=== PATIENT | male | born 1935 | race Caucasian/White ===

== ENCOUNTER 2017-08-30 17:22 | Emergency (ER) | payer MEDICARE, BC | END 2017-08-30 18:00 | disposition home or self-care (01) | LOC: SCSER 17:22 | DX: S39.012A Strain of muscle, fascia and tendon of lower back, initial encounter (principal); E11.9 Type 2 diabetes mellitus without complications; K21.9 Gastro-esophageal reflux disease without esophagitis; I10 Essential (primary) hypertension; Z87.891 Personal history of nicotine dependence; Z87.442 Personal history of urinary calculi; X50.1XXA Overexertion from prolonged static or awkward postures, initial encounter; Y92.89 Other specified places as the place of occurrence of the external cause | CPT/HCPCS: 99282 ==

== ENCOUNTER 2017-12-21 18:08 | Inpatient (IN) | payer BC, MEDICARE ==
[2017-12-21 19:14] LABS: #Eosinphils 0.1 thou/uL (0.0-0.7); #Lymphocytes 1.6 thou/uL (1.20-3.40); #Monocytes 0.9 thou/uL (0.11-0.59); #Neutrophils 7.7 thou/uL (1.40-6.50); %Basophils 0.4 % (0.0-1.0); %Eosinophils 0.6 % (0.0-10.0); %Lymphocytes 15.2 % (21.0-51.0); %Monocytes 8.4 % (0.0-10.0); %Neutrophils 75.4 % (42.0-75.0); Hemoglobin 13.3 g/dL (14.0-18.0); Mean Corpuscular HGB CONC 33.8 g/dL (32.0-36.0); Mean Corpuscular Hemoglobin 30.7 pg (27.0-31.0); Mean Corpuscular Volume 90.8 fL (78.0-98.0); Mean Platelet Volume 7.1 fL (7.4-10.4); Platelet Count 240 thou/uL (130-400); RBC Distribution Width 11.5 % (11.5-14.5); Red Blood Cell (RBC) Count 4.34 mill/uL (4.70-6.10); White Blood Cell (WBC) Count 10.3 thou/uL (4.8-10.8)
--- NOTE | 2017-12-21 19:25 | CT ---
CT OF BRAIN PERFORMED WITHOUT CONTRAST ENHANCEMENT: History: Altered mental status. FINDINGS: The ventricular and cisternal system shows some mild generalized atrophy. There are no signs of intra cerebral hemorrhage or extraaxial fluid collections. The mastoid air cells and visualized sinuses are clear. IMPRESSION: No acute intracranial abnormalities. POS: [facility]
[2017-12-21 19:31] LABS: ALT (SGPT) 12 U/L (8-55); AST (SGOT) 13 U/L (5-34); Albumin 3.8 g/dL (3.4-4.8); Alkaline Phosphatase 52 U/L (40-150); Anion Gap 19 mmol/L (10-20); BUN (Urea Nitrogen) 27 mg/dL (8.4-25.7); Bilirubin, Total 0.5 mg/dL (0.2-1.2); Calc. Creatinine Clearance 0 mL/min (70-130); Calcium 9.1 mg/dL (7.8-10.44); Carbon Dioxide 18 mmol/L (23-31); Chloride 108 mmol/L (98-107); Estimated GFR-MDRD 57; Globulin 2.7 g/dL (2.4-3.5); Glucose 172 mg/dL (83-110); Potassium 4.4 mmol/L (3.5-5.1); Protein, Total 6.5 g/dL (5.8-8.1); Sodium 141 mmol/L (136-145)
[2017-12-21 19:45] LABS: Bilirubin Small (Negative); Blood, Urine Negative (Negative); Clarity CLEAR (Clear); Glucose, Urine (Dipstick) 250 mg/dL (Negative); Leukocyte Negative (Negative); Nitrite Negative (Negative); Protein, Urine (Dipstick) 100 mg/dL (Neg-Trace); pH, Urine 5.5 (5.0-9.0)
[2017-12-21 19:49] LABS: Pathc Cast-AUWi Flag 4.21 (0-2.49)
[2017-12-21 19:58] LABS: Bacteria/HPF 1+ HPF (None Seen); Hyaline Casts/LPF 4-6 HYALINE CAST LPF (0-3 Hyaline); Manual Microscopic Reviewed? No Path Casts Seen; Renal Epithelial None Seen HPF (0-3); Transitional Epithelial 0-3 HPF (0-3)
[2017-12-21] MEDS ORDERED: cefTRIAXone\\ROCEPHIN 1 GM VIAL ONE (21:08)
--- NOTE | 2017-12-21 21:26 | PDOC.FPRHP ---
Addendum entered and electronically signed by Chau Brooks MD 12/21/17 23:43 : Allergies: NKDA Medications: Losartan: 100 mg daily Metformin 850 mg BID ASA 325 mg daily Simvastatin 20 mg HS Zantac 50 mg daily Protonix 40 mg daily lorazapam 1 mg TID PRN Tizanidine 2 mg TID PRN Multiple supplements. Original Note: - History of Present Illness Chief Complaint: Irregular heart rate History of Present Illness: This is an 82 yo male with a PMH of DMII, GERD, HTN who presents with a cc of elevate BG and an irregular heart rate. Family reports that he has not been himself for the last 2 weeks. Family reports that pt. has been progressively becoming more combative and argumentative to the point of scaring his away. Family reports that issues that he is fixated on happened a long time ago. Pt reports he has had increasingly unsteady balance but denies urinary incontinence. Family reports he is noncompliant with his diabetes. He denies any lightheadedness, dizziness, or SOB. - Allergies/Adverse Reactions Allergies Allergy/AdvReac Type Severity Reaction Status Date / Time No Known Drug Allergies Allergy Verified 12/22/17 01:08 - Home Medications Medication Instructions Recorded Confirmed Type Lorazepam [Ativan] 1 mg PO TID PRN 12/21/17 12/21/17 History Simvastatin 20 mg PO HS 12/21/17 12/21/17 History metFORMIN [Glucophage] 850 mg PO BID-WM 12/21/17 12/21/17 History tiZANidine HCl [Tizanidine HCl] 2 mg PO BID PRN 12/21/17 12/21/17 History Ascorbic Acid [Vitamin C] 1,000 mg PO DAILY 12/22/17 12/22/17 History Aspirin [Adult Aspirin] 81 mg PO BID 12/22/17 12/22/17 History Cholecalciferol (Vitamin D3) 1,000 unit PO DAILY 12/22/17 12/22/17 History [Vitamin D3] Cranberry 500 mg PO DAILY 12/22/17 12/22/17 History Folic Acid 0.4 mg PO DAILY 12/22/17 12/22/17 History Losartan Potassium 100 mg PO DAILY 12/22/17 12/22/17 History Omeprazole Magnesium 20 mg PO PRN PRN 12/22/17 12/22/17 History Pioglitazone HCl [Actos] 15 mg PO BID 12/22/17 12/22/17 History Saw Lorane Fruit [Saw Lorane] 450 mg PO DAILY 12/22/17 12/22/17 History - History PMHx:DM II, HTN, GERD PSHx: None FHx:Noncontributory Social: Former smoker, denies A/T - Review of Systems General: denies: fever/chills, weight/appetite/sleep changes Eyes: denies: eye pain, vision changes ENT: denies: nasal congestion, rhinorrhea Respiratory: denies: cough, congestion, shortness of breath Cardiovascular: denies: chest pain, palpitation, edema Gastrointestinal: denies: nausea, vomiting, diarrhea, constipation Genitourinary: reports: other (increased nocturia q3hr). denies: incontinence, dysuria Skin: denies: rashes, lesions Musculoskeletal: denies: pain, tenderness Neurological: denies: numbness, syncope, seizure Psychological: reports: other (Increasingly argumentative, pt. does not notice it. Pt's memory is altered per family.) - Vital signs BP: 130/86 HR: 69 RR: 18 Tmax: 97.9 Pox: 97% on RA Wt: 113.04 - Physical Exam Constitutional: NAD, awake, alert and oriented HEENT: normocephalic and atraumatic, PERRLA, EOMI, MMM Neck: supple, FROM, trachea midline Chest: no-tender to palpation Heart: normal S1/S2, no murmurs/rubs/gallops, other (Normal rate, irregularly irregular rhythm) Lungs: CTAB, no respiratory distress, good air movement Abdomen: soft, non-tender, bowel sounds present, no masses/distention Musculoskeletal: normal tone, ROM grossly normal Neurological: CN II-XII intact, normal sensation Skin: no rash/lesions, good turgor, capillary refill <2 seconds Heme/Lymphatic: no unusual bruising or bleeding Psychiatric: normal mood and affect, other (AAOx4) FMR H&P: Results - Labs Result Diagrams: 12/22/17 04:57 12/22/17 04:57 Lab results: WBC 10.3 thou/uL (4.8-10.8) 12/21/17 19:00 Hgb 13.3 g/dL (14.0-18.0) L 12/21/17 19:00 Hct 39.4 % (42.0-52.0) L 12/21/17 19:00 MCV 90.8 fL (78.0-98.0) 12/21/17 19:00 Plt Count 240 thou/uL (130-400) 12/21/17 19:00 Neutrophils % 75.4 % (42.0-75.0) H 12/21/17 19:00 Sodium 141 mmol/L (136-145) 12/21/17 19:00 Potassium 4.4 mmol/L (3.5-5.1) 12/21/17 19:00 Chloride 108 mmol/L (98-107) H 12/21/17 19:00 Carbon Dioxide 18 mmol/L (23-31) L 12/21/17 19:00 BUN 27 mg/dL (8.4-25.7) H 12/21/17 19:00 Creatinine 1.21 mg/dL (0.6-1.3) 12/21/17 19:00 Glucose 172 mg/dL (83-110) H 12/21/17 19:00 Lactic Acid 3.4 mmol/L (0.5-2.2) H 12/21/17 19:00 Calcium 9.1 mg/dL (7.8-10.44) 12/21/17 19:00 Total Bilirubin 0.5 mg/dL (0.2-1.2) 12/21/17 19:00 AST 13 U/L (5-34) 12/21/17 19:00 ALT 12 U/L (8-55) 12/21/17 19:00 Alkaline Phosphatase 52 U/L (40-150) 12/21/17 19:00 Serum Total Protein 6.5 g/dL (5.8-8.1) 12/21/17 19:00 Albumin 3.8 g/dL (3.4-4.8) 12/21/17 19:00 Urine Ketones 15 mg/dL (Negative) H 12/21/17 19:35 Urine Blood Negative (Negative) 12/21/17 19:35 Urine Nitrite Negative (Negative) 12/21/17 19:35 Ur Leukocyte Esterase Negative (Negative) 12/21/17 19:35 Urine RBC 4-6 HPF (0-3) 12/21/17 19:35 Urine WBC 4-6 HPF (0-3) H 12/21/17 19:35 Ur Squamous Epith Cells 7-10 HPF (0-3) H 12/21/17 19:35 Urine Bacteria 1+ HPF (None Seen) H 12/21/17 19:35 - EKG Interpretation EKG: aflutter, rate controlled, 77 bpm - Radiology Interpretation CT scan - head Status: report reviewed by me (CT brain wo, no acute intracranial abnormalities) FMR H&P: A/P - Problem List (1) Atrial flutter Current Visit: Yes Status: Acute Code(s): I48.92 - UNSPECIFIED ATRIAL FLUTTER (2) HTN (hypertension) Current Visit: Yes Status: Acute Code(s): I10 - ESSENTIAL (PRIMARY) HYPERTENSION (3) GERD (gastroesophageal reflux disease) Current Visit: Yes Status: Acute Code(s): K21.9 - GASTRO-ESOPHAGEAL REFLUX DISEASE WITHOUT ESOPHAGITIS (4) Diabetes mellitus type 2 in obese Current Visit: Yes Status: Acute Code(s): E11.69 - TYPE 2 DIABETES MELLITUS WITH OTHER SPECIFIED COMPLICATION; E66.9 - OBESITY, UNSPECIFIED (5) Dementia Current Visit: Yes Status: Acute Code(s): F03.90 - UNSPECIFIED DEMENTIA WITHOUT BEHAVIORAL DISTURBANCE - Plan This is an 82 yo male with a PMH of DMII, GERD, HTN New onset atrial flutter -Admit to [facility] for therapeutic anticoagulation. We have ordered an echo for tomorrow and will consult cardiology. Troponin negative x1 Lewy body dementia vs. Frontotemporal dementia -MRI of brain scheduled for tomorrow to rule out any evidence of microvascular infarcts. We will use haldol if pt. becomes combative while he is here. Hyperglycemia 2/2 DM -Continue home meds. ACHS accuchecks, SSI HTN -Within goal range, continue home medications GERD -Continue home medications Chronic low back pain -Aware, continue home meds Code: Full Prophylaxis: none Family: son and daughters at bedside and plan discussed with them Disposition: home in 2-3 days FMR H&P: Upper Level - Pertinent history 82 yo WM PMH HTN, DM2, and GERD. Presented to ER at request of family for worsening mental status and increased aggression. Additional history obtained from patient's son. Per the son, the patient has a 2 year history of worsening baseline mentation. He states that his father has become increasing fixated on 2 -3 issues including a car that was purchased for him 2 years ago. He has had increasing frequency of anger outbursts towards his of 57 years who recently left the home on Friday to stay with friends after the patient became angry at her and demanded that she leave the car and walk down [place]. After this outburst, the patient's left to stay with friends and has not returned home. When asked, the patient could not remember why he became angry at his but remembers becoming angry. Per the son, the patient has also had unusual thoughts including accusing his conveyor monitor of being Satan. The patient states he became angry at his earlier this week when she tried to mediated between the patient and the conveyor monitor. ER: Labs, EKG, CT-brain, NS 1L, Rocephin 1g, Lovenox 100 mg, - Pertinent findings Vitals: BP elevated 157/90, pulse 82, other WNL GEN: NAD A&Ox4 CV: normal rate, irregularly irregular rhythm, no murmur Pulm: CTA-B Neuro: grossly intact, Psych: becomes argumentative at times and tends to become off topic when discussing subjects which the patient's son state are things he fixates on. Labs: CBC and CMP unremarkable. UA appears to be dirty catch with 7-10 squamous cells, EKG: rate 77, a-flutter with variable block, QTc 463, CT- brain: reviewed by me, no acute processes - Plan Date/Time: 12/21/172111 I, Chau Brooks MD , have evaluated this patient and agree with findings/plan as outlined by internet technology manager resident. Pertinent changes/additions are listed here. 1. New onset A-fib/A-flutter: currently rate controlled, will start therapeutic anticoagulation using lovenox, cardiac markers not performed in ER so will add to evaluation. TTE ordered, Consult cardiology tomorrow. 2. 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 PRN Haldol for agitation 3. HTN: Home meds. PRNs 4. DM2: Home meds, SSI, hypoglycemics, Q6hr checks 5. UTI: suspect contaminated specimen, send for culture, hold abx for now. 6. Diet: CC, NPO at midnight for possible cardiac testing 7. PPx: fall, lovenox 8. CODE: FULL DISPO: Inpatient, Telemetry, >[address] Paet. Attending Addendum - Attending Addendum Date/Time: 12/21/172129 I personally evaluated the patient and discussed the management with Dr. Gonzales and Dr. Brooks I agree with the History, Examination, Assessment and Plan documented above with any addition or exceptions noted below. 82 yo male presents for evaluation of behavioral changes and abnormal heart rate Patient's son present for history. Notes significant change in father's behavior in relation to lack of empathy and aggression. Has become obsessed over different issues. Has threatened his and pentecostalism preacher. Patient has been confused over certain events and when they occurred. Son states decline has been present for several months with significant behavioral changes but overall changes have started to occur "since he was in his 70's." Patient denies any complications. Including cardiac or pulmonary symptoms related to a. flutter. Son is not aware of any previous history of a. flutter. VS reviewed. Labs reviewed. Imaging reviewed. A. flutter: Discussed risk of anticoagulation. Currently rate controlled. Place on tele. Consult cards in AM with likely EP consult in AM. Dementia with behavioral changes: MMSE and MoCA with PHQ 9 to be done. Labs reviewed. TSH WNL but low normal in September 2017. Will rule out vitamin B12 and neurosyphilis. CT reviewed. MRI in AM. Consult neurology. Patient's family interested in geriatric neuropsych analysis if available. CM to be consulted to help with placement. Patient too aggressive and unaware to be discharged to home. Monitor other co-morbid conditions. Adjust home meds as needed. Artemio
[2017-12-21] MEDS ORDERED: Enoxaparin Sodium 100 MG/ML SYRINGE ONE (21:57)
[2017-12-21 21:59] LABS: CKMB 2.4 ng/mL (0-6.6); Troponin I Less than 0.010 ng/mL (< 0.028)
--- NOTE | 2017-12-21 22:26 | RAD ---
PORTABLE CHEST: History: Atrial flutter. Comparison: None. FINDINGS: Heart size appears slightly enlarged. There are atherosclerotic changes of the aorta. The lungs show some chronic appearing change. Old right rib fractures are seen. No signs of failure. IMPRESSION: Mild cardiomegaly. POS: [facility]
[2017-12-21 23:00] LABS: Lactic Acid 1.9 mmol/L (0.5-2.2)
[2017-12-22] MEDS ORDERED: tiZANidine HCl 4 MG TAB PO PRN (01:25)
[2017-12-22] MEDS ORDERED: Lorazepam 1 MG TAB PO PRN (01:25)
[2017-12-22] MEDS ORDERED: Dextrose 5% in Water 1,000 ML IV PRN (01:25)
[2017-12-22] MEDS ORDERED: Labetalol HCl 100 MG/20 ML VIAL SLOW IVP PRN (01:25)
[2017-12-22] MEDS ORDERED: Dextrose 50% Abboject 50 ML SYRINGE SLOW IVP PRN (01:25)
[2017-12-22] MEDS ORDERED: Ondansetron ODT 4 MG TAB PO PRN (01:25)
[2017-12-22] MEDS ORDERED: HumaLOG 300 UNITS/3 ML VIAL SC PRN ×2 (01:25)
[2017-12-22] MEDS ORDERED: hydrALAZINE 20 MG/ML VIAL SLOW IVP PRN (01:25)
[2017-12-22] MEDS: Sodium Chloride 0.9% 1,000 ML IV SCH ×2 (01:33→09:51)
[2017-12-22 01:38] VITALS: BMI 32.2
[2017-12-22 05:31] LABS: #Basophils 0.1 thou/uL (0.0-0.2); #Eosinphils 0.2 thou/uL (0.0-0.7); #Lymphocytes 2.4 thou/uL (1.20-3.40); #Monocytes 0.8 thou/uL (0.11-0.59); #Neutrophils 5.4 thou/uL (1.40-6.50); %Basophils 0.9 % (0.0-1.0); %Eosinophils 2.1 % (0.0-10.0); %Monocytes 8.7 % (0.0-10.0); %Neutrophils 61.3 % (42.0-75.0); Mean Corpuscular HGB CONC 32.9 g/dL (32.0-36.0); Mean Corpuscular Volume 91.3 fL (78.0-98.0); Platelet Count 212 thou/uL (130-400); RBC Distribution Width 11.4 % (11.5-14.5); Red Blood Cell (RBC) Count 4.02 mill/uL (4.70-6.10); White Blood Cell (WBC) Count 8.9 thou/uL (4.8-10.8)
[2017-12-22 05:43] LABS: Anion Gap 11 mmol/L (10-20); BUN (Urea Nitrogen) 22 mg/dL (8.4-25.7); Calc. Creatinine Clearance 95 mL/min (70-130); Calcium 8.5 mg/dL (7.8-10.44); Carbon Dioxide 22 mmol/L (23-31); Chloride 110 mmol/L (98-107); Estimated GFR-MDRD 75; Glucose 202 mg/dL (83-110); Potassium 3.7 mmol/L (3.5-5.1); Sodium 139 mmol/L (136-145)
[2017-12-22] MEDS ORDERED: Enoxaparin Sodium 120 MG/0.8 ML SYRINGE SC SCH (09:00)
[2017-12-22] MEDS ORDERED: Prevnar 13-Val Conj/PF 0.5 ML SYRINGE IM ONE (09:00)
--- NOTE | 2017-12-22 09:15 | PDOC.FM ---
- Subjective Subjective: This morning patient denies CONLEY, SOB, CP, N/V/D. Patient states he slept well. He is A&Ox3. Patient is tangential when discussing altercation with his . Per family, declining baseline mental status with increasingly frequent outbursts of anger for 2 years, acutely worse for 2 weeks or so. - Objective Vital Signs & Weight: Vital Signs (12 hours) Temp Pulse Resp BP Pulse Ox 12/22/17 07:39 98 F 66 16 136/67 97 12/22/17 04:00 98 F 77 20 125/59 L 95 12/22/17 01:11 98.3 F 67 16 157/77 H 97 Weight Weight 115.241 kg I&O: 12/21/17 12/22/17 12/23/17 06:59 06:59 06:59 Intake Total 1074 Output Total 425 Balance 649 Result Diagrams: 12/22/17 04:57 12/22/17 04:57 <Waldo Euceda - Last Filed: 12/22/17 09:17> - Objective Vital Signs & Weight: Vital Signs (12 hours) Temp Pulse Resp BP Pulse Ox 12/22/17 11:37 98.3 F 66 16 150/71 H 98 12/22/17 07:39 98 F 66 16 136/67 97 12/22/17 04:00 98 F 77 20 125/59 L 95 12/22/17 01:11 98.3 F 67 16 157/77 H 97 Weight Weight 115.241 kg I&O: 12/21/17 12/22/17 12/23/17 06:59 06:59 06:59 Intake Total 1074 Output Total 425 Balance 649 Result Diagrams: 12/22/17 04:57 12/22/17 04:57 <Sunil Fitzpatrick - Last Filed: 12/22/17 12:48> Phys Exam - Physical Examination Constitutional: NAD HEENT: PERRLA, moist MMs Respiratory: no wheezing, clear to auscultation bilateral Cardiovascular: RRR, no significant murmur Gastrointestinal: soft, non-tender, no distention, positive bowel sounds Musculoskeletal: no edema, pulses present Neurological: non-focal, moves all 4 limbs Psychiatric: A&O x 3 Skin: no rash, cap refill <2 seconds <Waldo Euceda - Last Filed: 12/22/17 09:17> Dx/Plan (1) Atrial flutter Code(s): I48.92 - UNSPECIFIED ATRIAL FLUTTER Status: Acute (2) Dementia Code(s): F03.90 - UNSPECIFIED DEMENTIA WITHOUT BEHAVIORAL DISTURBANCE Status: Acute (3) Diabetes mellitus type 2 in obese Code(s): E11.69 - TYPE 2 DIABETES MELLITUS WITH OTHER SPECIFIED COMPLICATION; E66.9 - OBESITY, UNSPECIFIED Status: Acute (4) GERD (gastroesophageal reflux disease) Code(s): K21.9 - GASTRO-ESOPHAGEAL REFLUX DISEASE WITHOUT ESOPHAGITIS Status: Acute (5) HTN (hypertension) Code(s): I10 - ESSENTIAL (PRIMARY) HYPERTENSION Status: Acute - Plan Plan: # Altered Mental Status likely 2/2 frontotemporal/lewy body demenita - Brain MRI ordered, CT no acute changes - No neuro on-call today, consult tomorrow - worsening for 2 years, acutely worse 2 weeks - haldol for agitation, BREE overnight #New onset Atrial flutter/A fib - appears to be Atrial flutter on tele, rate controlled - therapeutic anticoagulation - TTE ordered, trop negative - Cardiology consulted appreciate recs # HTN - home meds # DM2 - home meds - SSI # UTI - likely contaminant - ucx pending Diet: CC, NPO at midnight pending cardiology eval PPx: fall, lovenox Code: full Dispo: likely HH vs Placement, pending Neurology, Cardiology eval <Waldo Euceda - Last Filed: 12/22/17 09:17> Attending Addendum - Attending Addendum Date/Time: 12/22/17 1918 I personally evaluated the patient and discussed the management with Dr. Tonia Euceda I agree with the History, Examination, Assessment and Plan documented above with any addition or exceptions noted below.Patient with aggressive attitude upon questioning this AM high level of executive functioning however short term memory is impaired and paranoid behavior noted recently. Patient non remorseful for recent separation from and assuming no responsibility for her leaving. <Sunil Fitzpatrick - Last Filed: 12/22/17 12:48>
[2017-12-22] MEDS: metFORMIN 850 MG TAB PO SCH ×2 (09:56→16:44)
[2017-12-22] MEDS: Aspirin 325 MG TAB PO SCH (09:57)
[2017-12-22] MEDS: Famotidine/PF 20 mg/2ml Vial SLOW IVP SCH ×2 (09:57→21:49)
[2017-12-22] MEDS: Enoxaparin Sodium 100 MG/ML SYRINGE SC SCH ×2 (09:58→21:49)
--- NOTE | 2017-12-22 11:40 | PDOC.EVN ---
Event Note - Event Note Event Note: Mini-Mental Status Exam / (-2 for object recollection)
--- NOTE | 2017-12-22 11:40 | MRI ---
MRI BRAIN WITHOUT CONTRAST: Date: 12/22/17 HISTORY: Evaluate for dementia. Altered mental status. COMPARISON: None. TECHNIQUE: MRI brain is performed without contrast. Multisequential, multiplanar imaging is performed. FINDINGS: No hemorrhage on the axial gradient echo sequence. Calvarium has a normal T1 marrow signal intensity. Midline brain parenchymal structures are unremarka ble. No significant T2 or FLAIR white matter hyperintensities. Central arterial flow-voids are maintained. Absent restricted diffusion. No parenchymal mass, mass effect, or midline shift. Brain volume age-appropriate. Ventricles and sulc i are patent and symmetric. Mild mucosal thickening of the paranasal sinuses. IMPRESSION: Absent restricted diffusion. No acute infarct. POS: [facility]
--- NOTE | 2017-12-22 12:49 | CON ---
DATE OF CONSULTATION: 12/22/2017 INDICATION FOR CONSULTATION: An 82-year-old patient with a history of new onset atrial flutter new diagnosis of atrial flutter. This unfortunate 82-year-old gentleman who has a history of diabetes, hypertension, and gastroesophag eal reflux disease was brought in by the family after he had become increasingly violent at home and having anger issues. His has recently left him. He has an issue with this and also some proble m with some car, but he becomes almost combative and argumentative and the has left home and the patient says perhaps this will end in a divorce, but he does appear over the last couple of years to be having some mental status changes. He has had no previous cardiac history that he is aware of an d denies any chest pain or shortness of breath, but EKG on admission did show atrial flutter but the ventricular response was not significantly elevated. PAST MEDICAL HISTORY: Significant for hypertension, gastroesophageal reflux disease, and history of nephrolithiasis in the past. He has diabetes and dementia with aggressive-type behavior. SOCIAL HISTORY: He is still . He has five children. He stopped smoking several years ago. He has no alcohol use. 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 FAMILY HISTORY: Noncontributory. ALLERGIES: None. MEDICATIONS PRIOR TO ADMISSION: Included tizanidine, simvastatin 20 mg at bedtime, metformin 800 mg b.i.d., Ativan, Actos, losartan 100 mg daily, aspirin 81 mg a day, omeprazole 20 mg p.r.n. for gastro esophageal reflux disease, Saw [place], folic acid, cranberry capsules, vitamin D3, and vitamin C. REVIEW OF SYSTEMS: He says he wears glasses. He has no other significant problems. He does have so me left hip pain and leg pain. Otherwise, 12-point review of systems unremarkable according to the p atient. PHYSICAL EXAMINATION: GENERAL: Reveals a well-developed, well-nourished gentleman. VITAL SIGNS: Blood pressure at this time is 150/71, heart rate is 66 and irregular with atrial flutt er, respiratory rate 16. He is afebrile. O2 saturation 98%. HEENT: Shows head to be normocephalic and atraumatic. Carotid pulses are present. Did not have any bruits. There is no JVD noted. The thyroid is enlarged. Oral mucosa was pink and moist. CHEST: Clear to auscultation. There are no rales, rhonchi or wheezing. CARDIOVASCULAR: Exam at this time reveals a regular rhythm. I cannot hear any significant murmurs, heaves, thrills, bruits, or rubs. ABDOMEN: Soft, nontender, obese. Positive bowel sounds are present. No organomegaly or masses are noted. Femoral pulses are present. EXTREMITIES: Showed no clubbing, cyanosis, or edema. NEUROLOGIC: The patient does appear to be somewhat angry about the leaving and is confused abou t the timeframe when he retired, when he moved, and things like this and appears to have some degree of dementia, but motor skills appear to be within normal limits. He has normal strength and to ne. SKIN: Warm and dry. His EKG showed atrial flutter with a controlled ventricular response. Laboratory data also was obtai maggie and shows blood sugar to be 126/155. Sodium 139, potassium is 3.7. Cardiac enzymes are negative and unremarkable. Hemoglobin is 12.0, hematocrit 36.7, and WBC was 8.9. His urinalysis did show 1+ bacteria with elevated protein and glucose as well as ketones in the urine. IMPRESSION: 1. Newly diagnosed atrial flutter uncertain of the duration of his atrial flutter. An echocardiogra m is being performed today. We will evaluate that. We will also ask for an EP consultation. Most l ikely, he will need to undergo an ablation of atrial flutter. This will be the best solution. He ma y need to have a transesophageal echocardiogram prior to undergoing the ablation depending on the eje ction fraction and whether or not the vendor quality supervisor feel that he needs to have a SULTANA prior to a cardioversion or prior to an ablation of the atrial flutter. 2. Diabetes. This will be dealt with by the primary care service. 3. Hypertension. This is under reasonable control at this time. 4. History of dementia. This will also have to be dealt with by the primary care service. We will be more than happy to continue to follow the patient with you.
[2017-12-22] MEDS: Acetaminophen 325 MG TAB PO PRN ×2 (13:49→21:51)
--- NOTE | 2017-12-22 21:26 | CON ---
DATE OF SERVICE: 12/22/2017 ELECTROPHYSIOLOGY CONSULTATION REPORT REFERRING PHYSICIAN: Sherry Glover MD HISTORY OF PRESENT ILLNESS: I am seeing Mr. Lara at our [facility] telemetry floor as an electrophysiology consult and with the following problems: 1. Newly found sustained atrial flutter with controlled ventricular rates. 2. Preserved LV function 55% to 60%, [id number] left atrial enlargement, mild MR and TR on ech o 12/22/2017. 3. History of dementia with anger control issues. 4. History of gastroesophageal reflux disease. 5. Remote history of smoking. ALLERGIES: None. MEDICATIONS AT HOME: Include tizanidine, simvastatin, metformin, Ativan, Actos, losartan, aspirin, o meprazole for gastroesophageal reflux disease, saw palmet[place], folic acid, cranberry capsule, vitamin D 3, vitamin C. SUBJECTIVE: Mr. Lara is here due to some mental status changes, which were attributed to possibly his mild dementia. He denies angina, significant dyspnea. No fever, chills, cough. No stroke-like symptoms. He was found to have elevated blood glucose and newly found atrial flutter was documented in the ER. He did not have a history of this before. REVIEW OF SYSTEMS: He again denies dizziness, loss of consciousness. No stroke-like symptoms or chloe rological deficits. No fever, chills, cough. Rest of twelve-point system is otherwise unremarkable. PAST MEDICAL HISTORY: Type 2 diabetes, hypertension, GERD. SOCIAL HISTORY: Former smoker. Denies drug or ETOH abuse. 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 He is marrie d, but his recently left him due to his aggressive behavior according to son who brought him in. FAMILY HISTORY: Noncontributory. OBJECTIVE: VITAL SIGNS: Blood pressure is 150/71, heart rate 66, respirations 16, temperature 98.3 degrees Fahr enheit. GENERAL: Alert and oriented man in no apparent distress. NECK: Supple. Jugular veins are not distended. CHEST: Coarse without crackles. CARDIAC: Heart sounds are irregularly irregular. S1, S2 are variable. No murmur or gallop. ABDOMEN: Benign. Bowel sounds positive. EXTREMITIES: Lower extremities without edema, clubbing, or cyanosis. DATABASE: EKGs reviewed reveals typical atrial flutter with controlled ventricular rates, 60-70 beat s per minute. He also had a brain MRI from 12/22/2017, shows no acute infarct, no hemorrhage, no bra in mass is documented. LABORATORY DATA: White count is 8.9, hemoglobin 12, platelet count is 212. Sodium 139, potassium 3. 7, BUN is 20, creatinine 0.96. ASSESSMENT AND PLAN: Mr. Lara is a pleasant 82-year-old man with no prior cardiac disease, who has though mild dementia and anger issues. He was found to have elevated blood sugar and also newly fou nd atrial flutter on his ER evaluation. Dr. Glover consulted me for further plans. I had a discussion with this gentleman regarding his atrial flutter. I have detailed the risk of str gina associated with his condition. I also discussed the treatment options, which would include rate control versus cardioversion versus SULTANA-guided ablation procedure. He voiced that he would like to h ave this taken care of sooner than later. I offered him to contact his relatives to discuss this fur ther. I detailed the risk and benefit to the patient and he understands and willing to proceed. He states his decisions. We will tentatively make arrangements for tomorrow.
[2017-12-22] MEDS: Atorvastatin Calcium 10 MG TAB PO SCH (21:49)
[2017-12-23 06:02] LABS: Syphilis Antibody Nonreactive (Nonreactive); Syphilis Antibody Index 0.08 S/CO (<1.00 Non-Reactive)
[2017-12-23 07:04] LABS: Hemoglobin 12.8 g/dL (14.0-18.0); Mean Corpuscular HGB CONC 33.1 g/dL (32.0-36.0); Mean Corpuscular Hemoglobin 30.1 pg (27.0-31.0); Mean Corpuscular Volume 90.9 fL (78.0-98.0); Mean Platelet Volume 6.9 fL (7.4-10.4); Platelet Count 226 thou/uL (130-400); RBC Distribution Width 11.4 % (11.5-14.5); Red Blood Cell (RBC) Count 4.25 mill/uL (4.70-6.10); White Blood Cell (WBC) Count 7.4 thou/uL (4.8-10.8)
[2017-12-23 07:21] LABS: Anion Gap 11 mmol/L (10-20); BUN (Urea Nitrogen) 17 mg/dL (8.4-25.7); Calc. Creatinine Clearance 95 mL/min (70-130); Calcium 8.7 mg/dL (7.8-10.44); Carbon Dioxide 24 mmol/L (23-31); Chloride 109 mmol/L (98-107); Estimated GFR-MDRD 75; Glucose 132 mg/dL (83-110); Sodium 140 mmol/L (136-145)
[2017-12-23] MEDS: metFORMIN 850 MG TAB PO SCH ×2 (07:47→17:25)
[2017-12-23] MEDS: Aspirin 325 MG TAB PO SCH (07:50)
[2017-12-23] MEDS: Enoxaparin Sodium 100 MG/ML SYRINGE SC SCH (07:50)
[2017-12-23] MEDS: Famotidine/PF 20 mg/2ml Vial SLOW IVP SCH ×2 (07:51→19:44)
[2017-12-23] MEDS: Acetaminophen 325 MG TAB PO PRN (08:19)
[2017-12-23] MEDS ORDERED: Cyanocobalamin 1000 MCG/ML VIAL IM SCH (09:00)
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
[2017-12-23] MEDS ORDERED: Enoxaparin Sodium 100 MG/ML SYRINGE SC SCH (13:00)
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
[2017-12-23] MEDS: Ibuprofen 800 MG TAB PO SCH (17:25)
--- NOTE | 2017-12-23 18:29 | ULT ---
ULTRASOUND ABDOMINAL AORTA: 12/23/17 HISTORY: Abdominal aortic aneurysm. COMPARISON: None. FINDINGS: Real time darling scale and color evaluation of the abdominal aorta was performed. The exam is limited although there is dilatation of the distal abdominal aorta measuring up to 3.2 cm. IMPRESSION: Dilated distal aorta measuring 3.2 cm. Conventional angiogram may be beneficial versus CT angiogram. POS: [facility]
[2017-12-23 18:59] LABS: Hemoglobin 12.1 g/dL (14.0-18.0); Platelet Count 218 thou/uL (130-400)
[2017-12-23] MEDS: Apixaban 5 MG TAB PO SCH (19:44)
[2017-12-23] MEDS: Atorvastatin Calcium 10 MG TAB PO SCH (19:44)
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
[2017-12-24] MEDS: Ibuprofen 800 MG TAB PO SCH ×3 (03:49→17:09)
[2017-12-24 05:16] LABS: Hemoglobin 11.9 g/dL (14.0-18.0); Platelet Count 229 thou/uL (130-400)
--- NOTE | 2017-12-24 07:59 | PDOC.FM ---
- Subjective Subjective: This morning patient states he slept well and he is anticipating cardioversion this morning at 8AM. No acute events overnight. Denies chest pain or shortness of breath. No N/V/D. - Objective Vital Signs & Weight: Vital Signs (12 hours) Temp Pulse Resp BP Pulse Ox 12/24/17 07:05 98.6 F 70 16 141/83 H 96 12/24/17 03:25 98.0 F 75 17 145/85 H 95 12/23/17 20:00 97.9 F 94 18 141/62 H 93 L Weight Weight 115.241 kg I&O: 12/23/17 12/24/17 12/25/17 06:59 06:59 06:59 Intake Total 980 670 Output Total 625 1370 Balance 355 -700 Result Diagrams: 12/24/17 04:45 12/24/17 04:45 <Waldo Euceda - Last Filed: 12/24/17 07:57> - Objective Vital Signs & Weight: Vital Signs (12 hours) Temp Pulse Resp BP Pulse Ox 12/24/17 07:05 98.6 F 70 16 141/83 H 96 12/24/17 03:25 98.0 F 75 17 145/85 H 95 Weight Weight 115.241 kg I&O: 12/23/17 12/24/17 12/25/17 06:59 06:59 06:59 Intake Total 980 670 Output Total 625 1370 Balance 355 -700 Result Diagrams: 12/24/17 04:45 12/24/17 04:45 <Sunil Fitzpatrick - Last Filed: 12/24/17 11:02> Phys Exam - Physical Examination Constitutional: NAD HEENT: PERRLA, moist MMs Neck: no nodes, full ROM Respiratory: no wheezing, clear to auscultation bilateral Cardiovascular: no significant murmur irregularly irregular rhythm Gastrointestinal: soft, non-tender, no distention, positive bowel sounds Musculoskeletal: no edema, pulses present Neurological: non-focal, moves all 4 limbs Psychiatric: normal affect, A&O x 3 Skin: no rash, cap refill <2 seconds <Waldo Euceda - Last Filed: 12/24/17 07:57> Dx/Plan (1) Atrial flutter Code(s): I48.92 - UNSPECIFIED ATRIAL FLUTTER Status: Acute (2) Dementia Code(s): F03.90 - UNSPECIFIED DEMENTIA WITHOUT BEHAVIORAL DISTURBANCE Status: Acute (3) Diabetes mellitus type 2 in obese Code(s): E11.69 - TYPE 2 DIABETES MELLITUS WITH OTHER SPECIFIED COMPLICATION; E66.9 - OBESITY, UNSPECIFIED Status: Acute (4) GERD (gastroesophageal reflux disease) Code(s): K21.9 - GASTRO-ESOPHAGEAL REFLUX DISEASE WITHOUT ESOPHAGITIS Status: Acute (5) HTN (hypertension) Code(s): I10 - ESSENTIAL (PRIMARY) HYPERTENSION Status: Acute - Plan Plan: # Altered Mental Status likely 2/2 frontotemporal/lewy body demenita - Brain MRI no acute changes, CT no acute changes - consulted Neurology, no acute changes on MRI, to gather more info - worsening for 2 years, acutely worse 2 weeks, see hpi from 12/23 - ashtyn for agitation, BREE overnight # Placement - further family discussions regarding placement today - not safe to go home alone - will work with CM for placement options #New onset Atrial flutter/A fib - cardioversion today - ablation must be down outpatient if necessary because of damaged equipment - rate controlled, 1 instance to 110s overnight - Cardiology, EP consulted appreciate recs # HTN - home meds # DM2 - home meds - SSI # UTI - likely contaminant - ucx no growth at 24 hrs Diet: CC, NPO at midnight pending ablation PPx: fall, lovenox Code: full Dispo: likely Placement, 1-2 days <Waldo Euceda - Last Filed: 12/24/17 07:57> Attending Addendum - Attending Addendum Date/Time: 12/24/17 1055 I personally evaluated the patient and discussed the management with Dr. Tonia Euceda I agree with the History, Examination, Assessment and Plan documented above with any addition or exceptions noted below. Patient successfully DC cardioverted this AM, note ablation placed on hold. Neurology consult appreciated. Looking into placement for restorative care. Will look into options for medication management for recent behavioral changes primarily anger. Discussed with Patient's son Ruben chester have been secured at patient's home and not able to be patient's provider and she has safety concerns given Patients recent aggressive behavior. Will continue to address DM and HTN . <Sunil Fitzpatrick - Last Filed: 12/24/17 11:02>
[2017-12-24] MEDS: metFORMIN 850 MG TAB PO SCH ×2 (08:11→17:09)
[2017-12-24] MEDS ORDERED: Atropine Sulfate 1 mg/10 ml Syringe ONE (08:18)
[2017-12-24] MEDS ORDERED: PROPOFOL 20 ML ONE (08:18)
[2017-12-24] MEDS ORDERED: Lidocaine 1% PF 5 ML VIAL ONE ×2 (08:18→14:44)
[2017-12-24] MEDS ORDERED: risperiDONE 0.25 MG TAB PO SCH ×2 (09:00→11:45)
[2017-12-24] MEDS: Aspirin 325 MG TAB PO SCH (09:56)
[2017-12-24] MEDS: Apixaban 5 MG TAB PO SCH ×2 (09:56→20:24)
[2017-12-24] MEDS: Famotidine/PF 20 mg/2ml Vial SLOW IVP SCH ×2 (09:56→20:24)
--- NOTE | 2017-12-24 11:02 | PDOC.EVN ---
Event Note - Event Note Event Note: Touched base with family this AM planning on placement in NH in [place] Discussed with patient he is currently amenable to NH placement Has some concerns about his , thinks she could be his caregiver at home, but not sure she wants to Per discussion with family, is still very supportive of , but living home alone with him is not a good option for fear of harm to her
--- NOTE | 2017-12-24 11:21 | PDOC.EVN ---
Event Note - Event Note Event Note: Discussed case with Psychiatry Recommended starting patient on risperidone 0.25mg BID, may titrate up as needed over time
--- NOTE | 2017-12-24 12:46 | OP ---
DATE OF PROCEDURE: 12/24/2017 SURGEON: Dr. Kaden Carlos PROCEDURE: Cardioversion. REASON FOR PROCEDURE: Mr. Lara is an 82-year-old man with newly found atrial flutter here for card ioversion. SULTANA prior to the procedure reveals no intracardiac clots. PROCEDURE: The patient received propofol by Anesthesia specialist. After adequate level of sedation achieved, a synchronized 100 joule shock promptly converted the patient back to sinus rhythm. CONCLUSION: Successful cardioversion. PLAN: Start oral anticoagulation and consider outpatient cavotricuspid isthmus ablation.
--- NOTE | 2017-12-24 14:07 | PDOC.CTH ---
<Claire Cheng - Last Filed: 12/24/17 14:04> Cardiology Progress Note - Subjective The pt seen and examined. No overnight events. No cardiac complaints. He walked with PT today without any difficulties. - Objective Vital Signs Temp Pulse Resp BP Pulse Ox 12/24/17 11:00 97.9 F 85 16 135/88 95 12/24/17 07:05 98.6 F 70 16 141/83 H 96 12/24/17 03:25 98.0 F 75 17 145/85 H 95 Weight 254 lb 1 oz 12/23/17 12/24/17 12/25/17 06:59 06:59 06:59 Intake Total 980 670 Output Total 625 1370 Balance 355 -700 - Physical Examination General/Neuro: alert & oriented x3 Neck: no JVD present Lungs: CTA Heart: RRR Abdomen: soft Extremities: other: (No edema) - Telemetry Telemetry Rhythm: SR - Labs Result Diagrams: 12/24/17 04:45 12/24/17 04:45 Troponin/CKMB CK-MB (CK-2) 2.4 ng/mL (0-6.6) 12/21/17 18:55 Troponin I Less than 0.010 ng/mL (< 0.028) 12/21/17 18:55 - Assessment/Plan 1. Afib with S/p SULTANA and DCCV on 12/23/17 - Remains in SR. On Eliquis 5mg BID. Plan for ablation as outpatient. 2. HTN - stable 3. DM type 2 - managed by PCP 4. Dementia - stable MAR reviewed Review of Systems - Review of Systems Constitutional: reports: no symptoms reported EENTM: reports: no symptoms reported Respiratory: reports: no symptoms reported Cardiac (ROS): reports: no symptoms reported ABD/GI: reports: no symptoms reported : reports: no symptoms reported Musculoskeletal: reports: no symptoms reported <Sukumar Glover - Last Filed: 12/24/17 18:53> Cardiology Progress Note - Objective Vital Signs Temp Pulse Pulse Pulse Resp BP BP 12/24/17 15:15 97.9 F 91 14 12/24/17 13:31 100 97 147/69 H 126/61 12/24/17 11:00 97.9 F 85 16 12/24/17 07:05 98.6 F 70 16 BP BP Pulse Ox 12/24/17 15:15 118/62 96 12/24/17 13:31 12/24/17 11:00 135/88 95 12/24/17 07:05 141/83 H 96 Weight 254 lb 1 oz 12/23/17 12/24/17 12/25/17 06:59 06:59 06:59 Intake Total 980 670 480 Output Total 625 1370 375 Balance 355 -700 105 - Labs Result Diagrams: 12/24/17 04:45 12/24/17 04:45 Troponin/CKMB CK-MB (CK-2) 2.4 ng/mL (0-6.6) 12/21/17 18:55 Troponin I Less than 0.010 ng/mL (< 0.028) 12/21/17 18:55 - Assessment/Plan pt. seen and eval. by me. I agree with the A/P by the PICU NURSE he is s/p cardioversion this AM. He is maintaining NSR.
[2017-12-24] MEDS ORDERED: PROPOFOL 200 MG/20 ML VIAL ONE (14:44)
[2017-12-24 15:28] LABS: Folate,Hemolysate 432.9 ng/mL (Not Estab.); Hematocrit 36.6 % (37.5-51.0); RBC Folate Test Component 1183 ng/mL (>498)
[2017-12-24] MEDS: Atorvastatin Calcium 10 MG TAB PO SCH (20:24)
[2017-12-24] MEDS: risperiDONE 0.25 MG TAB PO SCH (20:24)
--- NOTE | 2017-12-24 21:08 | ECHO ---
DATE OF SERVICE: 12/24/17 REASON FOR PROCEDURE: This is an 82-year-old man with newly found atrial flutter with controlled rat e. He has not been well anticoagulated in the past. Now initiated for . SULTANA is perform ed today to rule out intracardiac clots. PROCEDURE: The patient received propofol by Anesthesia specialist. After adequate level of sedation achieved, a standard transesophageal echocardiogram probe was passed into the esophagus without diff iculty. Patient tolerated the procedure well, no complications noted. RESULTS: Left atrium is moderately enlarged to 5.8 cm in horizontal diameter. The appendage well visualized c ontains no clots that the appendage velocities up to 50 cm per second, which is adequate. Four pulmo nary veins were visualized. The interatrial septum is free of defect. The mitral valve has mitral r egurgitation. The left ventricular function is preserved. Left ventricular size and wall thickness is normal. Right chambers nondilated. The tricuspid valve has trivial regurgitation. Aortic valve has three leaflets without regurgitation or significant stenosis, minimal thickening noted. Pulmonar y valve is borderline visualize and appears to be without significant regurgitation. Pericardial spa ce without effusion. The visualized portion of ascending and descending aorta without aneurysm, diss ection or mobile atheroma. CONCLUSION: 1. No intracardiac clots. 2. Normal left ventricular systolic function. 3. Moderate left atrial enlargement. 4. Mild mitral regurgitation. PLAN: Proceed with cardioversion.
[2017-12-25] MEDS: Ibuprofen 800 MG TAB PO SCH ×2 (03:06→10:07)
[2017-12-25] MEDS: Acetaminophen 325 MG TAB PO PRN (07:56)
--- NOTE | 2017-12-25 08:08 | PDOC.FM ---
- Subjective Subjective: This morning patient states he is feeling well. He is still concerned about family relationships. Denies CP, SOB, N/V/D. Had cardioversion yesterday. Sinus rhythm on tele. - Objective Vital Signs & Weight: Vital Signs (12 hours) Temp Pulse Resp BP BP BP Pulse Ox 12/25/17 08:00 98.7 F 69 18 156/74 H 94 L 12/25/17 04:00 98.4 F 76 20 121/50 L 92 L 12/24/17 20:10 98.4 F 100 17 138/72 96 Weight Weight 118.841 kg I&O: 12/24/17 12/25/17 12/26/17 06:59 06:59 06:59 Intake Total 670 660 Output Total 1370 425 Balance -700 235 Result Diagrams: 12/24/17 04:45 12/24/17 04:45 <Waldo Euceda - Last Filed: 12/25/17 08:06> - Objective Vital Signs & Weight: Vital Signs (12 hours) Temp Pulse Resp BP BP Pulse Ox 12/25/17 08:00 98.7 F 69 18 156/74 H 94 L 12/25/17 04:00 98.4 F 76 20 121/50 L 92 L Weight Weight 118.841 kg I&O: 12/24/17 12/25/17 12/26/17 06:59 06:59 06:59 Intake Total 670 660 Output Total 1370 425 Balance -700 235 Result Diagrams: 12/24/17 04:45 12/24/17 04:45 <Sunil Fitzpatrick - Last Filed: 12/25/17 10:03> Phys Exam - Physical Examination Constitutional: NAD HEENT: PERRLA, moist MMs Respiratory: no wheezing, clear to auscultation bilateral Cardiovascular: RRR, no significant murmur Gastrointestinal: soft, non-tender, no distention, positive bowel sounds Musculoskeletal: no edema, pulses present Neurological: moves all 4 limbs Psychiatric: normal affect, A&O x 3 Skin: no rash, cap refill <2 seconds <Waldo Euceda - Last Filed: 12/25/17 08:06> Dx/Plan (1) Atrial flutter Code(s): I48.92 - UNSPECIFIED ATRIAL FLUTTER Status: Acute (2) Dementia Code(s): F03.90 - UNSPECIFIED DEMENTIA WITHOUT BEHAVIORAL DISTURBANCE Status: Acute (3) Diabetes mellitus type 2 in obese Code(s): E11.69 - TYPE 2 DIABETES MELLITUS WITH OTHER SPECIFIED COMPLICATION; E66.9 - OBESITY, UNSPECIFIED Status: Acute (4) GERD (gastroesophageal reflux disease) Code(s): K21.9 - GASTRO-ESOPHAGEAL REFLUX DISEASE WITHOUT ESOPHAGITIS Status: Acute (5) HTN (hypertension) Code(s): I10 - ESSENTIAL (PRIMARY) HYPERTENSION Status: Acute - Plan Plan: # Altered Mental Status likely 2/2 frontotemporal/lewy body demenita - Brain MRI no acute changes, CT no acute changes - consulted Neurology, no acute changes on MRI, to gather more info - worsening for 2 years, acutely worse 2 weeks, see hpi from 12/23 - started patient on risperdone 0.25mg BID # Placement - referral submitted yesterday, awaiting acceptance - not safe to go home alone - could benefit from family meeting #New onset Atrial flutter/A fib - cardioversion yesterday - ablation to be scheduled outpatient - sinus rhythm on tele overnight - Cardiology, EP, consulted appreciate recs # HTN - home meds # DM2 - home meds - SSI # UTI - likely contaminant - ucx no growth at 48 hrs Diet: CC, NPO at midnight pending ablation PPx: Code: full Dispo: stable for d/c pending cards recs and placement <Waldo Euceda - Last Filed: 12/25/17 08:06> Attending Addendum - Attending Addendum Date/Time: 12/25/17 1003 I personally evaluated the patient and discussed the management with Dr. Nu Euceda I agree with the History, Examination, Assessment and Plan documented above. <Sunil Fitzpatrick - Last Filed: 12/25/17 10:03>
[2017-12-25] MEDS ORDERED: Sodium Chloride 0.9% 10 ML ONE (08:42)
--- NOTE | 2017-12-25 09:31 | PRG ---
DATE OF SERVICE: 12/25/2017 SUBJECTIVE: Mr. Lara seems to be doing well today. His rhythm remained stable after his cardiover margarita yesterday. He is feeling better, still has back pains which are chronic. OBJECTIVE: VITAL SIGNS: Blood pressure 156/74, heart rate 69, respiration is 18, temperature 98.7 degrees Fahre nheit. GENERAL: He is an alert and oriented man, in no apparent distress. NECK: Supple. Jugular veins not distended. CHEST: Coarse without crackles. CARDIOVASCULAR: Heart sounds are regular to rate and rhythm. No murmur or gallop. ABDOMEN: Benign. Bowel sounds positive. EXTREMITIES: Lower extremities without edema, clubbing or cyanosis. DATABASE: The telemetry strips reveal sinus rhythm, occasional PACs. ASSESSMENT AND PLAN: Mr. Lara is an 82-year-old man with a newly found atrial flutter, underwent T EE, cardioversion yesterday. His symptoms cannot recall to be markedly better at this point without ambulation, no maintaining sinus rhythm. Plan at this point to start oral anticoagulation, possibly with Xarelto. No bleeding issues noted. residential, I would prefer eliminating cavotricuspid isthmus dependent flutter and hopefully relieve t he need for anticoagulation. 1. Dementia, mild to moderate as per primary team. 2. CHADS-VASc score of 4 with hypertension, diabetes, and age, likely benefit from anticoagulation. Start Xarelto. 3. Chronic back aches. The patient is planning to have a back MRI, possible treatment in the future . Judicious management of the anticoagulation is necessary on these procedures. 4. Follow up requested in 2-4 weeks.
[2017-12-25] MEDS: metFORMIN 850 MG TAB PO SCH (10:04)
[2017-12-25] MEDS: risperiDONE 0.25 MG TAB PO SCH (10:06)
[2017-12-25] MEDS: Apixaban 5 MG TAB PO SCH (10:07)
[2017-12-25] MEDS: Famotidine/PF 20 mg/2ml Vial SLOW IVP SCH (10:10)
[2017-12-25 13:15] VITALS: BP 135/68; TEMP 97.5
--- NOTE | 2017-12-25 13:35 | PDOC.CTH ---
Cardiology Progress Note - Subjective The pt seen and examined. No overnight events. No cardiac complaints. He complains of chronic back pain. - Objective Vital Signs Temp Pulse Pulse Pulse Resp BP BP 12/25/17 12:00 97.5 F L 83 18 12/25/17 09:38 74 84 166/87 H 175/77 H 12/25/17 08:00 98.7 F 69 18 12/25/17 04:00 98.4 F 76 20 BP BP BP Pulse Ox 12/25/17 12:00 135/68 96 12/25/17 09:38 12/25/17 08:00 156/74 H 96 12/25/17 04:00 121/50 L 92 L Weight 262 lb 12/24/17 12/25/17 12/26/17 06:59 06:59 06:59 Intake Total 670 660 Output Total 1370 425 Balance -700 235 - Physical Examination General/Neuro: alert & oriented x3 Neck: no JVD present Lungs: CTA Heart: RRR Abdomen: soft Extremities: other: (No edema) - Labs Result Diagrams: 12/24/17 04:45 12/24/17 04:45 Troponin/CKMB CK-MB (CK-2) 2.4 ng/mL (0-6.6) 12/21/17 18:55 Troponin I Less than 0.010 ng/mL (< 0.028) 12/21/17 18:55 - Assessment/Plan 1. Afib with S/p SULTANA and DCCV on 12/23/17 - Remains in SR. On Eliquis 5mg BID. Plan for ablation by Dr Carlos as outpatient. 2. HTN - stable 3. DM type 2 - managed by PCP 4. Dementia - stable MAR reviewed * From cardiac standpoint, the pt is stable to d/c home/rehab. The pt will f/u with Dr Glover' office within 1-2 wks. Review of Systems - Review of Systems Constitutional: reports: no symptoms reported EENTM: reports: no symptoms reported Respiratory: reports: no symptoms reported Cardiac (ROS): reports: no symptoms reported ABD/GI: reports: no symptoms reported : reports: no symptoms reported Musculoskeletal: reports: see HPI
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
== END 2017-12-25 15:48 | DRG 310 ==
LOC: ERS 18:08 → 2NO 20:15
PROVIDERS: ADMIT Student in an Organized Health Care Education/Training Program; ATTEND Student in an Organized Health Care Education/Training Program
PROC: 5A2204Z Restoration of Cardiac Rhythm, Single (ICD-10-PCS; principal; 2017-12-24)
DX: I48.92 Unspecified atrial flutter (principal); F03.90 Unspecified dementia, unspecified severity, without behavioral disturbance, psychotic disturbance, mood disturbance, and anxiety; I10 Essential (primary) hypertension; E11.9 Type 2 diabetes mellitus without complications; G89.29 Other chronic pain; K21.9 Gastro-esophageal reflux disease without esophagitis; Z79.84 Long term (current) use of oral hypoglycemic drugs; Z87.891 Personal history of nicotine dependence; Z79.82 Long term (current) use of aspirin
CPT/HCPCS: 36415; 36416; 70450; 70551; 71045; 76775; 80048; 80053; 81003; 81015; 82550; 82553; 82565; 82607; 82747; 83605; 83880; 84484; 85014; 85018; 85025; 85027; 85049; 85520; 86780; 87086; 92960; 93005; 93306; 93312; 96361; 96365; 96372; G8978-GP-CK; G8979-GP-CI; G8987-GO-CJ; G8988-GO-CI; J0461; J0696; J1650; J2001; J2704; S0028